=== PATIENT | female | born 1995 | race Caucasian/White ===

== ENCOUNTER 2018-09-13 19:15 | Outpatient (CLI) | payer MEDICAID | END 2018-09-13 20:00 | disposition home or self-care (01) | LOC: LDOP 19:15 | PROVIDERS: ATTEND Obstetrics & Gynecology | DX: O36.8190 Decreased fetal movements, unspecified trimester, not applicable or unspecified (principal) | CPT/HCPCS: 59025; 99201; G0463 ==